=== PATIENT | male | born 1975 | race African-American/Black ===

== ENCOUNTER 2018-02-21 07:02 | Emergency (ER) | payer MEDICAID ==
[~2018-02-21] VITALS: Ht 175.3 cm; Wt 81.6 kg
[2018-02-21 07:36] VITALS: BP 145/94
== END 2018-02-21 11:42 | disposition home or self-care (01) ==
LOC: ER 07:02
DX: R20.0 Anesthesia of skin (principal); F17.210 Nicotine dependence, cigarettes, uncomplicated; I10 Essential (primary) hypertension
CPT/HCPCS: 93971